=== PATIENT | male | born 1960 | race Caucasian/White ===

== ENCOUNTER 2021-11-26 07:07 | Day surgery (SDC) | payer BC ==
[2021-11-26] MEDS ORDERED: Lactated Ringers 1,000 ML IV SCH ×2 (07:30→09:45)
--- NOTE | 2021-11-26 07:41 | PCM.PREANE ---
Preanesthetic Assessment - Procedure Proposed Procedure: Colonoscopy - Anesthesia/Transfusion/Family Hx Anesthesia History: Prior Anesthesia Without Reaction Family History of Anesthesia Reaction: No Transfusion History: No Prior Transfusion(s) - Review of Systems General: No Symptoms Pulmonary: No Symptoms (Smokes 1 PPD) Cardiovascular: No Symptoms (HTN, HLD) Gastrointestinal: No Symptoms Neurological: No Symptoms Other: Reports: None - Physical Assessment NPO Status Date: 11/25/21 NPO Status Time: 20:00 Height: 6 ft 2 in Weight: 102.512 kg ASA Class: 2 Mental Status: Alert & Oriented x3 Airway Class: Mallampati = 2 Dentition: Reports: Normal Dentition Thyro-Mental Finger Breadths: 3 Mouth Opening Finger Breadths: 3 ROM/Head Extension: Full Lungs: Clear to Auscultation, Normal Respiratory Effort Cardiovascular: Regular Rate, Regular Rhythm - Allergies Allergies/Adverse Reactions: Allergies Allergy/AdvReac Type Severity Reaction Status Date / Time No Known Allergies Allergy Verified 11/22/21 13:59 - Acknowledgements Anesthesia Type Planned: General Anesthesia Pt an Appropriate Candidate for the Planned Anesthesia: Yes Alternatives and Risks of Anesthesia Discussed w Pt/Guardian: Yes Pt/Guardian Understands and Agrees with Anesthesia Plan: Yes PreAnesthesia Questionnaire HEENT History: Reports: Other (See Below) Other HEENT History: wears glasses/contacts Cardiovascular History: Reports: High Cholesterol, Hypertension Respiratory History: Reports: None Gastrointestinal History: Reports: Chronic Constipation, Other (See Below) Other Gastrointestinal History: current rectal bleeding Genitourinary History: Reports: None Neurological History: Reports: None Psychiatric History: Reports: None Endocrine/Metabolic History: Reports: None Hematologic History: Reports: None Immunologic History: Reports: None Oncologic (Cancer) History: Reports: None Dermatologic History: Reports: None - Past Surgical History Head Surgeries/Procedures: Reports: None HEENT Surgical History: Reports: None GI Surgical History: Reports: Appendectomy, Hernia, Abdominal, Hernia, Inguinal Other GI Surgeries/Procedures: bilateral inguinal hernia repair, umbilical hernia repair Male Surgical History: Reports: Vasectomy Musculoskeletal Surgical History: Reports: Knee Replacement, Shoulder Surgery Other Musculoskeletal Surgeries/Procedures:: bilateral TKA, bilateral shoulder surgery- left RTCR, right attempted tendon repair - SUBSTANCE USE Tobacco Use Status *Q: Current Every Day Tobacco User Tobacco Use Within Last Twelve Months: Cigarettes Recreational Drug Use History: No - HOME MEDS Home Medications: Home Meds Losartan Potassium 100 mg PO QAM 11/22/21 [History] Rosuvastatin Calcium 10 mg PO BEDTIME 11/22/21 [History] - CURRENT (IN HOUSE) MEDS Current Meds: Current Medications Lactated Ringer's (Ringers, Lactated) 1,000 mls @ 125 mls/hr IV ASDIRECTED SHARIF
[2021-11-26] MEDS ORDERED: fentaNYL 100 MCG/2 ML SDV ONE ×3 (08:20→09:11)
[2021-11-26] MEDS ORDERED: Propofol 200 MG/20 ML SDV ONE (08:20)
[2021-11-26] MEDS ORDERED: Ketamine 500 mg/10 ML MDV ONE (09:02)
[2021-11-26] MEDS ORDERED: Glycopyrrolate 0.2 MG/ML SDV ONE (09:04)
--- NOTE | 2021-11-26 09:34 | PCM.OPNOTE ---
- General Post-Op/Procedure Note Date of Surgery/Procedure: 11/26/21 Operative Procedure(s): Colonoscopy with cold ascending colon polypectomy Pre Op Diagnosis: Change in bowel habits. Rectal bleeding. Tenesmus. Post-Op Diagnosis: Cecal polyp. Sigmoid diverticulosis. Anesthesia Technique: MAC (ASA II) Primary Surgeon: Leonardo Lui Racing Board Marker: Royce Marie Condition: Good Free Text/Narrative:: DICTATION [id number] CPT CODE [id number]
--- NOTE | 2021-11-26 09:39 | PCM.POSTAN ---
POST ANESTHESIA ASSESSMENT - MENTAL STATUS Mental Status: Alert, Oriented - VITAL SIGNS Vital Signs: Last Vital Signs Temp 98.2 F 11/26/21 07:20 Pulse 75 11/26/21 07:20 Resp 15 11/26/21 07:20 BP 141/76 H 11/26/21 07:20 Pulse Ox 97 11/26/21 07:20 - RESPIRATORY Respiratory Status: Respiratory Rate WNL, Airway Patent, O2 Saturation Stable - CARDIOVASCULAR CV Status: Pulse Rate WNL, Blood Pressure Stable - GASTROINTESTINAL GI Status: No Symptoms - PAIN Pain Score: 0 - POST OP HYDRATION Hydration Status: Adequate & Stable
--- NOTE | 2021-11-26 09:46 | PCM48HPAN ---
Post Anesthesia Note - EVALUATION WITHIN 48HRS OF ANESTHETIC Vital Signs in Normal Range: Yes Patient Participated in Evaluation: Yes Respiratory Function Stable: Yes Airway Patent: Yes Cardiovascular Function Stable: Yes Hydration Status Stable: Yes Pain Control Satisfactory: Yes Nausea and Vomiting Control Satisfactory: Yes Mental Status Recovered: Yes Vital Signs: Last Vital Signs Temp 98.2 F 11/26/21 09:33 Pulse 81 11/26/21 09:43 Resp 12 11/26/21 09:43 BP 113/75 11/26/21 09:43 Pulse Ox 93 L 11/26/21 09:43 - COMMENTS/OBSERVATIONS Free Text/Narrative:: Pt doing well post-op. VSS. No apparent anesthetic complications. Dr. Keegan Lima
--- NOTE | 2021-11-26 10:52 | OR ---
SURGEON: Leonardo Lui M.D. DATE OF PROCEDURE: 11/26/2021 OPERATION PERFORMED: Colonoscopy with cold cecal polypectomy. PRIMARY SURGEON: Leonardo Lui M.D. [employer] TECH LEAD: AGUSTIN [place] student. ANESTHESIA: MAC. ASA CLASSIFICATION: II. PREOPERATIVE DIAGNOSES: 1. Change in bowel habits. 2. Rectal bleeding. 3. Tenesmus. POSTOPERATIVE DIAGNOSES: 1. Small cecal polyp. 2. Sigmoid diverticulosis. DESCRIPTION OF PROCEDURE: The patient was taken to the endoscopy room and positioned on the endoscopy table in the left lateral decubitus position. Time-out was called for appropriate identification of the patient and procedure. Monitored anesthesia care was provided. The colonoscope was inserted into the rectum and advanced with moderate difficulty to the cecum. Cecum was identified by internal landmarks and external pressure. The colonoscope was retroflexed to visualize the ascending colon from below. One small polyp was encountered in the cecum and removed with the cold biopsy forceps. The remainder of the cecum, ascending colon, hepatic flexure, transverse colon, splenic flexure, and descending colon showed no tumors, polyps, diverticula, or angiodysplastic changes. The sigmoid colon itself demonstrates numerous small diverticula. No stricture, spasm, or bleeding was noted. No polyps were encountered and there was no acute inflammation. Once the colonoscope was withdrawn to the rectum, it was retroflexed to visualize the anal orifice from above. No acute hemorrhoids were noted and no polyps were encountered. Colonoscope was then straightened, the rectum aspirated, and the colonoscope removed. The patient tolerated the procedure well and was taken to recovery room in stable condition. ALMAS / JEISON /[id number]
== END 2021-11-26 09:59 | disposition home or self-care (01) ==
LOC: MW.SDS 07:07
PROVIDERS: ATTEND Surgery
DX: D12.0 Benign neoplasm of cecum (principal); K57.31 Diverticulosis of large intestine without perforation or abscess with bleeding; I10 Essential (primary) hypertension; F17.210 Nicotine dependence, cigarettes, uncomplicated; E78.00 Pure hypercholesterolemia, unspecified; Z79.899 Other long term (current) drug therapy; Z90.49 Acquired absence of other specified parts of digestive tract; Z98.890 Other specified postprocedural states
CPT/HCPCS: 45380; J2704; J3010; J3490; J7120; 00811

== ENCOUNTER 2022-06-15 13:35 | Emergency (ER) | payer OTHER, BC | END 2022-06-15 15:56 | disposition home or self-care (01) | LOC: MW.ED 13:35 | DX: S46.211A Strain of muscle, fascia and tendon of other parts of biceps, right arm, initial encounter (principal); E78.00 Pure hypercholesterolemia, unspecified; I10 Essential (primary) hypertension; F17.210 Nicotine dependence, cigarettes, uncomplicated; Z79.899 Other long term (current) drug therapy; Z86.16 Personal history of COVID-19; X50.0XXA Overexertion from strenuous movement or load, initial encounter; Y99.0 Civilian activity done for income or pay | CPT/HCPCS: 73060-26-RT; 73060-RT; 99283 ==